=== PATIENT | male | born 2000 | race Caucasian/White ===

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

== ENCOUNTER 2020-12-12 03:35 | Outpatient (CLI) | payer MEDICAID | END 2020-12-12 03:36 | disposition critical access hospital (66) | LOC: EMS 03:35 | PROVIDERS: ATTEND Emergency Medicine | DX: R56.9 Unspecified convulsions (principal); R51.9 Headache, unspecified; R07.0 Pain in throat; R05 Cough | CPT/HCPCS: A0425; A0427; A0999 ==

== ENCOUNTER 2020-12-12 03:51 | Emergency (ER) | payer MEDICAID ==
[2020-12-12] MEDS ORDERED: KETOROLAC 30 MG/ML VIAL IVP STA (04:30)
[2020-12-12] MEDS ORDERED: cefTRIAXone 1 GM in SODIUM CHLORIDE 0.9% MINIBAG 100 ML IV STA (04:30)
[2020-12-12] MEDS ORDERED: DEXAMETHASONE 10 MG/ML VIAL IVP STA (04:30)
[2020-12-12] MEDS ORDERED: LORazepam 2 MG/ML VIAL IVP STA ×2 (04:32→07:33)
--- NOTE | 2020-12-12 04:32 | ED Physician Documentation ---
PD HPI SEIZURE - Stated complaint Stated Complaint: SZ - Chief complaint Chief Complaint: Neuro - History obtained from History obtained from: Patient, Family, EMS - History of Present Illness Timing - onset: How many hours ago (1), Today Witnessed: Witnessed Number of seizures: Single, Lasted minutes Description of seizure activity: Generalized Associated symptoms: Headache, Nausea / vomiting, Other (has had "stuffy nose" for one week) History of seizures: Known seizure disorder Contributing factors: Sleep deprivation, Other (stuffy nose) Treatment [employer]CH[employer]IC: Other (zofran) Similar symptoms before: Diagnosis (epilepsy) Recently seen: Emergency Dept (in Sep 2020) - Additional information Additional information: 20-year-old male with a history of epilepsy has had another seizure tonight. He reports that he has had a number of seizures and he has had a number of different medications he has tried he believes he is tried as many of 17 different medications for his seizures. He is currently on a lamotrigine and amitriptyline. He does have a problem with sleep and trying to regulate his sleep pattern and he has had a stuffy nose recently. He does not think he has been exposed to coronavirus. Review of Systems Constitutional: denies: Fever Eyes: denies: Decreased vision Ears: reports: Ear pain Nose: reports: Rhinorrhea / runny nose, Congestion Throat: denies: Sore throat Cardiac: denies: Chest pain / pressure, Palpitations Respiratory: reports: Cough. denies: Dyspnea GI: reports: Nausea, Vomiting. denies: Abdominal Pain : denies: Dysuria, Frequency Skin: denies: Rash Musculoskeletal: reports: Neck pain. denies: Back pain, Extremity pain Neurologic: denies: Generalized weakness, Focal weakness, Numbness PD PAST MEDICAL HISTORY - Past Medical History Past Medical History: Yes Cardiovascular: None Respiratory: Asthma Neuro: Seizure disorder, Other Endocrine/Autoimmune: None GI: None : None HEENT: None Psych: Depression Musculoskeletal: None Derm: None - Past Surgical History Past Surgical History: No - Present Medications Home Medications: Ambulatory Orders Medication Instructions Recorded Confirmed LORazepam [Lorazepam] 0.5 - 1 mg PO TID PRN #20 tablet 02/22/19 12/12/20 LORazepam [Ativan] 1 mg PO ONCE PRN #10 tablet 03/17/19 12/12/20 Amitriptyline [Elavil] 50 mg PO DAILY 12/12/20 12/12/20 Amox/Clav 875/125 [Augmentin] 1 each PO Q12H #20 tab 12/12/20 LORazepam [Ativan] 1 - 2 mg PO ONCE PRN #12 12/12/20 lamoTRIgine [Lamictal] 200 mg PO BID 12/12/20 12/12/20 - Allergies Allergies/Adverse Reactions: Allergies Allergy/AdvReac Type Severity Reaction Status Date / Time No Known Drug Allergies Allergy Verified 12/12/20 03:57 - Social History Does the pt smoke?: No Smoking Status: Never smoker Does the pt drink ETOH?: No Does the pt have substance abuse?: Yes - Immunizations Immunizations are current?: Yes - POLST Patient has POLST: No PD ED PE NORMAL - Vitals Vital signs reviewed: Yes (tachy and hypertensive) - General General: Alert and oriented X 3, Well developed/nourished, Other (diaphoretic male appears slightly withdrawn) - HEENT HEENT: Atraumatic, PERRL, EOMI, Pharynx benign, Other (Both TM's are inflamed with indistinct landmarks. The right is more inflammed. ) - Neck Neck: Supple, no meningeal sign, No bony TTP, No adenopathy, Thyroid normal - Cardiac Cardiac: No murmur, Other (tachy to 100) - Respiratory Respiratory: No respiratory distress, Clear bilaterally - Abdomen Abdomen: Soft, Non tender, Non distended, No organomegaly - Back Back: No CVA TTP, No spinal TTP - Derm Derm: Normal color, Warm and dry, No rash - Extremities Extremities: No deformity, No edema - Neuro Neuro: Alert and oriented X 3, binding printer 2-12 intact, No motor deficit, No sensory deficit, Normal speech Eye Opening: Spontaneous Motor: Obeys Commands Verbal: Oriented GCS Score: 15 - Psych Psych: Normal mood, Normal affect Results - Vitals Vitals: Vital Signs - 24 hr 12/12/20 12/12/20 12/12/20 03:55 03:57 04:25 Temperature 36.2 C L 36.2 C L 36.2 C L Heart Rate 116 H 108 H 110 H Respiratory 24 18 15 Rate Blood Pressure 142/96 H 142/96 H 107/70 O2 Saturation 99 99 88 L 12/12/20 12/12/2012/12/21 04:26 05:12 06:47 Temperature 36.2 C L 36.3 C L 36.3 C L Heart Rate 110 H 91 87 Respiratory 15 10 L 20 Rate Blood Pressure 107/70 125/80 115/68 O2 Saturation 98 100 98 12/12/20 07:21 Temperature Heart Rate 86 Respiratory 16 Rate Blood Pressure 114/82 H O2 Saturation 100 Oxygen O2 Source Room air - Labs Labs: Laboratory Tests 12/12/20 12/12/20 04:40 04:40 WBC 10.0 RBC 5.63 Hgb 15.8 Hct 47.4 MCV 84.2 MCH 28.1 MCHC 33.3 RDW 13.0 Plt Count 306 MPV 9.0 Neut # (Auto) 8.3 H Lymph # (Auto) 1.1 L [place] # (Auto) 0.5 Eos # (Auto) 0.2 Baso # (Auto) 0.0 Absolute Nucleated RBC 0.00 Nucleated RBC % 0.0 Sodium 140 Potassium 3.8 Chloride 95 L Carbon Dioxide 22 Anion Gap 23.0 H BUN 15 Creatinine 1.1 Estimated GFR (MDRD) 85 L Glucose 130 H Calcium 10.6 H Total Bilirubin 0.4 AST 37 ALT 82 H Alkaline Phosphatase 94 Total Protein 8.4 H Albumin 5.1 Globulin 3.3 Albumin/Globulin Ratio 1.5 Lipase 25 PD MEDICAL DECISION MAKING - ED course Complexity details: reviewed results, re-evaluated patient, considered differential, d/w patient, d/w family ED course: 20-year-old male with a seizure disorder has had another seizure this morning and appears to have otitis on examination. He is administered dexamethasone 10 mg Toradol 30 mg for headache and Rocephin 1 g IV for otitis media. In addition he is given Ativan 2 mg IV to prevent further seizure. The patient feels much improved after several hours in the ED and requests to go home. Departure - Departure Disposition: 01 Home, Self Care Clinical Impression: Recurrent seizures Otitis media Qualifiers: Otitis media type: suppurative Chronicity: acute Laterality: bilateral Recurrence: not specified as recurrent Spontaneous tympanic membrane rupture: without spontaneous rupture Qualified Code(s): H66.003 - Acute suppurative otitis media without spontaneous rupture of ear drum, bilateral Condition: Stable Instructions: ED Otitis Media Acute Adult Follow-Up: ISAI,JIMMY, SUBSTANCE ABUSE PREVENTION COORDINATOR [Physician No Access] - Prescriptions: LORazepam [Ativan] 1 - 2 mg PO ONCE PRN #12 PRN Reason: Seizure Amox/Clav 875/125 [Augmentin] 1 each PO Q12H #20 tab
[2020-12-12] MEDS ORDERED: cefTRIAXone 1 GM VIAL ONE (04:45)
[2020-12-12 04:52] LABS: BASOPHILS % (AUTO) 0.2 %; EOSINOPHILS # (AUTO) 0.2 10^3/uL (0.0-0.7); EOSINOPHILS % (AUTO) 1.7 %; HGB - HEMOGLOBIN 15.8 g/dL (14.0-18.0); LYMPHOCYTES # (AUTO) 1.1 10^3/uL (1.5-3.5); LYMPHOCYTES % (AUTO) 10.5 %; MEAN CORPUSCULAR HEMOGLOBIN 28.1 pg (27.0-31.0); MEAN CORPUSCULAR HGB CONC 33.3 g/dL (32.0-36.0); MEAN CORPUSCULAR VOLUME 84.2 fL (80.0-94.0); MONOCYTES # (AUTO) 0.5 10^3/uL (0.0-1.0); MONOCYTES % (AUTO) 4.5 %; NEUTROPHILS # (AUTO) 8.3 10^3/uL (1.5-6.6); NEUTROPHILS % (AUTO) 82.3 %; PLT - PLATELET COUNT 306 10^3/uL (130-450); RED BLOOD COUNT 5.63 10^6/uL (4.70-6.10)
[2020-12-12 05:06] LABS: ALBUMIN 5.1 g/dL (3.2-5.5); ALBUMIN/GLOBULIN RATIO 1.5 (1.0-2.2); BILIRUBIN,TOTAL 0.4 mg/dL (0.2-1.0); CALCIUM 10.6 mg/dL (8.5-10.3); CREATININE 1.1 mg/dL (0.6-1.2); TOTAL PROTEIN 8.4 g/dL (6.7-8.2)
[2020-12-12] MEDS ORDERED: lamoTRIgine 100 MG TABLET PO STA (05:15)
[2020-12-12 07:41] VITALS: BP 122/79
== END 2020-12-12 07:41 | disposition home or self-care (01) ==
LOC: EDUNIT# → ED 03:51
DX: G40.909 Epilepsy, unspecified, not intractable, without status epilepticus (principal); H66.003 Acute suppurative otitis media without spontaneous rupture of ear drum, bilateral; R51.9 Headache, unspecified; Z72.820 Sleep deprivation
CPT/HCPCS: 36415; 80053; 80175; 83690; 85025; 96365; 96375; 96376; 99283; A9270; J2060

== ENCOUNTER 2020-12-19 15:54 | Outpatient (CLI) | payer MEDICAID | END 2020-12-19 15:55 | disposition home or self-care (01) | LOC: LAB 15:54 | PROVIDERS: ATTEND Psychiatry & Neurology Neurology | DX: G40.909 Epilepsy, unspecified, not intractable, without status epilepticus (principal) | CPT/HCPCS: 36415; 80175 ==

== ENCOUNTER 2021-03-17 21:44 | Emergency (ER) | payer MEDICAID ==
--- OUTSIDE RECORDS SUMMARY | 2021-03-17 21:47 | EXTERNAL MEDICAL SUMMARY RPT | Continuity of Care Document ---
:2000 Demographics Phone Unavailable Preferred Language Korean Marital Status Unknown Confucianist Affiliation Unknown Race Unknown Ethnic Group Unknown Author Organization [place] Address [address] [phone] Phone Care Team Providers Name Role Phone Haley Martinez Unavailable Unavailable Allergies Encounters Medications Problems Procedures date description facility [id number] [facility] Results
[2021-03-17 21:52] VITALS: BP 126/75
--- OUTSIDE RECORDS SUMMARY | 2021-03-17 22:10 | EXTERNAL MEDICAL SUMMARY RPT | Continuity of Care Document ---
:2000 Demographics Phone Unavailable Preferred Language Setswana Marital Status Unknown Pentecostal Affiliation Unknown Race Unknown Ethnic Group Unknown Author Organization [place] Address [address] [phone] Phone Care Team Providers Name Role Phone Haley Martinez Unavailable Unavailable Allergies Encounters Medications Problems Procedures date description facility [id number] [facility] Results
--- NOTE | 2021-03-17 22:14 | ED Physician Documentation ---
PD HPI LOWER EXT INJURY - Stated complaint Stated Complaint: RIGHT ANKLE PX - Chief complaint Chief Complaint: Ext Problem - History obtained from History obtained from: Patient - History of Present Illness PD HPI LOW EXT INJURY LOCATION: Right, Ankle Type of injury: Twist (inversion injury when stepped in divot.) Timing - onset: Today Timing - details: Abrupt onset, Still present Worsened by: Moving, Palpating Associated symptoms: Swelling, Discolored (bruising color lateral malleolus) Similar symptoms before: Diagnosis (had had ankle fracture in the past and torn ligaments.) Review of Systems Constitutional: denies: Fever, Chills Nose: denies: Rhinorrhea / runny nose, Congestion Throat: denies: Sore throat Respiratory: denies: Cough Skin: denies: Abrasion (s), Laceration (s) Neurologic: denies: Focal weakness, Numbness PD PAST MEDICAL HISTORY - Past Medical History Cardiovascular: None Respiratory: Asthma Neuro: Seizure disorder, Other Endocrine/Autoimmune: None GI: None : None HEENT: None Psych: Depression Musculoskeletal: None Derm: None - Past Surgical History Past Surgical History: No - Present Medications Home Medications: Ambulatory Orders Medication Instructions Recorded Confirmed Amitriptyline [Elavil] 20 - 50 mg PO DAILY 12/12/20 12/12/20 lamoTRIgine [Lamictal] 250 mg PO BID 12/12/20 12/12/20 HYDROcod/ACETAM 5/325 [[place] 5/325] 1 ea PO Q6H PRN #10 tablet 03/18/21 Ibuprofen [Motrin] 600 mg PO TID PRN #25 tab 03/18/21 - Allergies Allergies/Adverse Reactions: Allergies Allergy/AdvReac Type Severity Reaction Status Date / Time No Known Drug Allergies Allergy Verified 12/12/20 03:57 - Social History Does the pt smoke?: No Smoking Status: Never smoker Does the pt drink ETOH?: No Does the pt have substance abuse?: Yes - Immunizations Immunizations are current?: Yes - POLST Patient has POLST: No PD ED PE NORMAL - Vitals Vital signs reviewed: Yes - General General: Alert and oriented X 3, Well developed/nourished, Other (seems very uncomfortable due to ankle) - Derm Derm: Normal color, Warm and dry - Extremities Extremities: Other (right ankle with swelling and ecchymosis at lateral malleolus and distal to that, onto area of ATFL. Not tender in distal foot/toes. Stress testing not done due to pain/tenderrness. ) Results - Vitals Vitals: Vital Signs - 24 hr 03/17/21 21:47 Temperature 36.6 C Heart Rate 120 H Respiratory 18 Rate Blood Pressure 126/75 O2 Saturation 95 Oxygen O2 Source Room air - Rads (name of study) right ankle Radiology: Prelim report reviewed (no acute fractures (remote small avulsion).), See rad report PD MEDICAL DECISION MAKING - ED course Complexity details: reviewed results, considered differential, d/w patient Departure - Departure Disposition: Home, Self Care Clinical Impression: High ankle sprain of right lower extremity Qualifiers: Encounter type: initial encounter Qualified Code(s): S93.491A - Sprain of other ligament of right ankle, initial encounter Condition: Stable Record reviewed to determine appropriate education?: Yes Instructions: ED Sprain Ankle Follow-Up: Álvaro Townsend MD [Provider Admit Priv/Credential] - Prescriptions: Ibuprofen [Motrin] 600 mg PO TID PRN #25 tab PRN Reason: Pain HYDROcod/ACETAM 5/325 [[place] 5/325] 1 ea PO Q6H PRN #10 tablet PRN Reason: Pain Comments: Your x-ray does not show any fractures. However the degree of pain bruising and swelling suggest some tearing of the ligaments on the side of the ankle. Is hard to assess the degree of it currently with the swelling and pain. We will treated as torn ligaments and have a recheck in about a week to week and a half to reassess the ligaments at that time. Call tomorrow for follow up appt. Use the walking cast boot and have it on most all the time. You can change it for washing or cleaning but have it on to support the ankle. Anti-inflammatories such as ibuprofen 3 times a day. To that add Tylenol if needed for pain. Ice rest and elevate often the next couple of days to reduce swelling. The bruising will take a week or so to fade. Discharge Date/Time: 03/18/21 00:45
[2021-03-18] MEDS ORDERED: HYDROcod/ACETAM 5/325 MG TABLET PO STA (00:19)
[2021-03-18] MEDS ORDERED: IBUPROFEN 600 MG TABLET PO STA (00:19)
--- NOTE | 2021-03-18 08:34 | XRAY Report ---
PROCEDURE: Ankle 3 View RT INDICATIONS: Trauma TECHNIQUE: 3 views of the ankle were acquired. COMPARISON: None FINDINGS: Bones: No fractures or dislocations. Ankle mortise is normally aligned. No suspicious bony lesions . Soft tissues: No tibiotalar joint effusion. Achilles tendon appears normal. Lateral ankle soft tis naya swelling is noted. IMPRESSION: Lateral ankle soft tissue swelling. No gross acute ankle fracture or dislocation. Reviewed by: Marciano Cintron MD on 03/18/2021 8:32 AM PDT Approved by: Marciano Cintron MD on 03/18/2021 8:32 AM PDT Station ID: [id number]
== END 2021-03-18 00:45 | disposition home or self-care (01) ==
LOC: ED 21:44
DX: S93.491A Sprain of other ligament of right ankle, initial encounter (principal); S90.01XA Contusion of right ankle, initial encounter; X50.1XXA Overexertion from prolonged static or awkward postures, initial encounter; Y93.74 Activity, frisbee; Y92.007 Garden or yard of unspecified non-institutional (private) residence as the place of occurrence of the external cause
CPT/HCPCS: 73610; 99283; A9270

== ENCOUNTER 2021-03-20 19:21 | Emergency (ER) | payer MEDICAID ==
--- OUTSIDE RECORDS SUMMARY | 2021-03-20 19:24 | EXTERNAL MEDICAL SUMMARY RPT | Continuity of Care Document ---
:2000 Demographics Phone Unavailable Preferred Language Maldivian Marital Status Unknown Taoism Affiliation Unknown Race Unknown Ethnic Group Unknown Author Organization [place] Address [address] [phone] Phone Care Team Providers Name Role Phone Michelle Unavailable Unavailable Allergies Encounters Medications Problems Procedures date description facility [id number] [facility] Results
--- OUTSIDE RECORDS SUMMARY | 2021-03-20 19:27 | EXTERNAL MEDICAL SUMMARY RPT | Continuity of Care Document ---
:2000 Demographics Phone Unavailable Preferred Language Ghanaian Marital Status Unknown Protestant Affiliation Unknown Race Unknown Ethnic Group Unknown Author Organization [place] Address [address] [phone] Phone Care Team Providers Name Role Phone Michelle Unavailable Unavailable Allergies Encounters Medications Problems Procedures date description facility [id number] [facility] Results
--- NOTE | 2021-03-20 19:29 | ED Physician Documentation ---
PD HPI LOWER EXT INJURY - Stated complaint Stated Complaint: RT ANKLE PX - History obtained from History obtained from: Patient - History of Present Illness PD HPI LOW EXT INJURY LOCATION: Right, Ankle, Foot Type of injury: Twist (stepped in divot few days ago and seen in ER with ankle ligament/muscle tear clinically, and negative xray. Was to follow up with Ortho or PCP after swelling goes down to reassess degree of ligament injury. He went to Walk In today and was referred to ER, per patient.) Timing - onset: How many days ago Timing - details: Abrupt onset, Still present (less swelling that with day of injury, but bruising has spread.) Improved by: Rest, Immobilization Worsened by: Palpating Associated symptoms: Swelling, Discolored. No: Weakness, Numbness Recently seen: Emergency Dept (is presenting today for follow up and recheck with spread of brusing down to foot/base of toes and up lateral side of lower leg. No calf pain nor swelling.) Review of Systems Constitutional: denies: Fever, Chills Cardiac: denies: Chest pain / pressure, Palpitations, Calf pain Respiratory: denies: Dyspnea, Cough Neurologic: denies: Focal weakness, Numbness PD PAST MEDICAL HISTORY - Past Medical History Cardiovascular: None Respiratory: Asthma Neuro: Seizure disorder, Other Endocrine/Autoimmune: None GI: None : None HEENT: None Psych: Depression Musculoskeletal: None Derm: None - Past Surgical History Past Surgical History: No - Present Medications Home Medications: Ambulatory Orders Medication Instructions Recorded Confirmed Amitriptyline [Elavil] 20 - 50 mg PO DAILY 12/12/20 12/12/20 lamoTRIgine [Lamictal] 250 mg PO BID 12/12/20 12/12/20 HYDROcod/ACETAM 5/325 [[place] 5/325] 1 ea PO Q6H PRN #10 tablet 03/18/21 Ibuprofen [Motrin] 600 mg PO TID PRN #25 tab 03/18/21 - Allergies Allergies/Adverse Reactions: Allergies Allergy/AdvReac Type Severity Reaction Status Date / Time No Known Drug Allergies Allergy Verified 03/20/21 19:32 - Social History Does the pt smoke?: No Smoking Status: Never smoker Does the pt drink ETOH?: No Does the pt have substance abuse?: Yes - Immunizations Immunizations are current?: Yes - POLST Patient has POLST: No PD ED PE NORMAL - Vitals Vital signs reviewed: Yes - General General: Alert and oriented X 3, No acute distress, Well developed/nourished - Derm Derm: Normal color, Warm and dry - Extremities Extremities: Other (there is less focal swelling and bruising over anterolateral ankle, with it showing at base of heel, dorsum foot and base of toes now. Also some bruising lateral lower leg in area peroneal muscle. No calf tenderness nor edema in popliteal/upper calf area. ) - Neuro Neuro: Alert and oriented X 3, No motor deficit, No sensory deficit, Normal speech Results - Vitals Vitals: Vital Signs - 24 hr 03/20/21 19:26 Heart Rate 86 Respiratory 14 Rate Blood Pressure 146/72 H O2 Saturation 99 Oxygen O2 Source Room air PD MEDICAL DECISION MAKING - ED course Complexity details: reviewed old records, considered differential (patient with reasonably expected bruising to foot, down to toes and some up lateral lower leg in area of spread of the ankle hematoma, from gravity and compression. No calf tenderness nor swelling in upper lower leg. Stress testing shows laxity ATFL but not posterior. ), d/w patient ED course: Patient with bruising and swelling related to ankle injury/hematoma. I am not sure why Walk In provider felt patient needed to come back to the ER and not able to evaluate it there. Seems sturdy enough to be able to continue with boot orthosis until Ortho followup. Departure - Departure Disposition: 01 Home, Self Care Clinical Impression: High ankle sprain of right lower extremity Qualifiers: Encounter type: subsequent encounter Qualified Code(s): S93.491D - Sprain of other ligament of right ankle, subsequent encounter Condition: Stable Record reviewed to determine appropriate education?: Yes Instructions: ED Sprain Ankle W X Ray Follow-Up: Álvaro Townsend MD [Provider Admit Priv/Credential] - Comments: The spread of the bruising is reasonable based on the initial hematoma (blood collection) of the ankle you initially had. Movement, gravity, compression with the Nelson wrap and boot will all cause it to spread around as it has. The bruising is irritative to the tissue and is promoting swelling in other areas and pain in other areas. Continue the ibuprofen 3 times a day. To that add Tylenol 650 mg 4 times a day. Continue to elevate ice and rest the ankle with the cast boot on most of the time for support of the ligaments and muscles. Continue nonweightbearing with the crutches until starting to improve. Follow-up with orthopedics next week, call for an appointment. The recheck of the ligaments today shows some stability of the lateral ankle ligaments. Likely there is some partial tears of course with the bruising and swelling. This should be treatable with the continued use of the cast boot over 4-6 weeks. Follow-up with orthopedics next week for reevaluation and to ensure ongoing healing with this approach. Discharge Date/Time: 03/20/21 20:03
[2021-03-20 19:32] VITALS: BP 146/72
== END 2021-03-20 20:03 | disposition home or self-care (01) ==
LOC: ED 19:21
DX: S93.491A Sprain of other ligament of right ankle, initial encounter (principal); S90.01XA Contusion of right ankle, initial encounter; S90.31XA Contusion of right foot, initial encounter; S80.11XA Contusion of right lower leg, initial encounter; X50.1XXA Overexertion from prolonged static or awkward postures, initial encounter
CPT/HCPCS: 99281; 99282

== ENCOUNTER 2021-03-27 08:00 | Outpatient (CLI) | payer MEDICAID ==
--- NOTE | 2021-03-28 09:19 | XRAY Report ---
PROCEDURE: Ankle 3 View RT INDICATIONS: R ANKLE PX TECHNIQUE: 3 views of the ankle were acquired. COMPARISON: 03/17/2021 FINDINGS: Bones: No fractures or dislocations. Ankle mortise is normally aligned. No suspicious bony lesions . Soft tissues: No tibiotalar joint effusion. Achilles tendon appears normal. Mild lateral ankle sof t tissue swelling is seen. IMPRESSION: Mild lateral ankle soft tissue swelling decreased compared to previous study. No ankle f racture or dislocation. Ankle mortise is intact. Reviewed by: Marciano Cintron MD on 03/28/2021 9:18 AM PDT Approved by: Marciano Cintron MD on 03/28/2021 9:18 AM PDT Station ID: [id number]
== END 2021-03-27 23:59 | disposition home or self-care (01) ==
LOC: DI.N 08:00
PROVIDERS: ATTEND Physician Assistant
DX: R93.6 Abnormal findings on diagnostic imaging of limbs (principal); R93.89 Abnormal findings on diagnostic imaging of other specified body structures

== ENCOUNTER 2021-04-01 18:23 | Outpatient (CLI) | payer MEDICAID | END 2021-04-01 18:24 | disposition critical access hospital (66) | LOC: EMS 18:23 | DX: R56.9 Unspecified convulsions (principal) | CPT/HCPCS: A0425; A0427; A0999 ==

== ENCOUNTER 2021-04-01 18:43 | Emergency (ER) | payer MEDICAID ==
[2021-04-01] MEDS ORDERED: SODIUM CHLORIDE 0.9% 1,000 ML IV STA (19:13)
[2021-04-01] MEDS ORDERED: LORazepam 2 MG/ML VIAL IVP STA (19:13)
[2021-04-01] MEDS ORDERED: ONDANSETRON 4 MG/2 ML VIAL IVP STA (19:13)
--- NOTE | 2021-04-01 19:16 | ED Physician Documentation ---
PD HPI SEIZURE - Stated complaint Stated Complaint: SEIZURE - Chief complaint Chief Complaint: Neuro - History obtained from History obtained from: Patient, Family, EMS - History of Present Illness Timing - onset: Today Witnessed: Unwitnessed Number of seizures: Unobtainable Description of seizure activity: Generalized, Postictal. No: Incontinent Injury during seizure: None Associated symptoms: Diaphoresis, Nausea / vomiting History of seizures: Known seizure disorder Contributing factors: No: Off meds, Out of meds, Changed meds, Low blood sugar, Head injury, Substance abuse, EtOH withdrawal, Benzo withdrawal, Overdose, Fever, Sleep deprivation Similar symptoms before: Diagnosis (siezure disorder) Recently seen: Emergency Dept (for ankle sprain) - Additional information Additional information: 20-year-old male with a lifelong seizure disorder has had seizures 1-2 times per week until about 2 months ago when he has had a break for about 2 months. He has been stable now on lamotrigine at 250 twice daily and amitriptyline. Today he got up at about 4 PM and his mother was gone he texted her something that did not sound right she rushed back home to find him laying on his back and beginning to vomit. She rolled him onto his left side he has vomited and has been diaphoretic similar to what is had previously with seizure. Review of Systems Constitutional: denies: Fever, Chills, Myalgias Eyes: denies: Decreased vision Ears: denies: Ear pain Nose: denies: Rhinorrhea / runny nose, Congestion Throat: denies: Sore throat Cardiac: denies: Chest pain / pressure Respiratory: denies: Dyspnea, Cough GI: reports: Abdominal Pain (now), Nausea, Vomiting, Diarrhea (with excessive BBQ and mac and cheese) : denies: Dysuria, Frequency Skin: denies: Rash Musculoskeletal: denies: Neck pain, Back pain, Extremity pain Neurologic: reports: Seizure. denies: Generalized weakness, Focal weakness, Numbness Psychiatric: denies: Depressed, Suicidal PD PAST MEDICAL HISTORY - Past Medical History Past Medical History: Yes Cardiovascular: None Respiratory: Asthma Neuro: Seizure disorder, Other Endocrine/Autoimmune: None GI: None : None HEENT: None Psych: Depression Musculoskeletal: None Derm: None - Past Surgical History Past Surgical History: No - Present Medications Home Medications: Ambulatory Orders Medication Instructions Recorded Confirmed lamoTRIgine [Lamictal] 250 mg PO BID 12/12/20 04/01/21 Amitriptyline [Elavil] 25 mg PO HS 04/01/21 04/02/21 LORazepam [Ativan] 1 mg PO Q6HR PRN #12 tablet 04/01/21 04/01/21 - Allergies Allergies/Adverse Reactions: Allergies Allergy/AdvReac Type Severity Reaction Status Date / Time No Known Drug Allergies Allergy Verified 04/01/21 23:38 - Social History Does the pt smoke?: No Smoking Status: Never smoker Does the pt drink ETOH?: No Does the pt have substance abuse?: Yes - Immunizations Immunizations are current?: Yes - POLST Patient has POLST: No PD ED PE NORMAL - Vitals Vital signs reviewed: Yes (tachy and hypertensive) - General General: Alert and oriented X 3, Well developed/nourished, Other (The patient is anxious appearing diaphoretic and holding an emesis bag) - HEENT HEENT: Atraumatic, PERRL, EOMI, Ears normal, Moist mucous membranes, Pharynx benign, Dentition benign - Neck Neck: Supple, no meningeal sign, No bony TTP - Cardiac Cardiac: RRR, No murmur - Respiratory Respiratory: No respiratory distress, Clear bilaterally - Abdomen Abdomen: Normal bowel sounds, Soft, Non distended, No organomegaly, Other (mild epigastric tenderness ) - Back Back: No CVA TTP, No spinal TTP - Derm Derm: Normal color, No rash, Other (diaphoretic ) - Extremities Extremities: No deformity, No edema - Neuro Neuro: Alert and oriented X 3, provider relations coordinator 2-12 intact, No motor deficit, No sensory deficit, Normal speech Eye Opening: Spontaneous Motor: Obeys Commands Verbal: Oriented GCS Score: 15 - Psych Psych: Normal mood, Normal affect Results - Vitals Vitals: Vital Signs - 24 hr 04/01/21 04/01/21 04/01/21 18:52 19:02 21:15 Temperature 36.6 C 36.6 C Heart Rate 105 H 105 H 100 Respiratory 19 18 18 Rate Blood Pressure 164/118 H 164/118 H 137/77 H O2 Saturation 100 100 100 04/01/21 22:31 Temperature 37.1 C Heart Rate 108 H Respiratory 18 Rate Blood Pressure 142/94 H O2 Saturation 100 Oxygen O2 Source Room air - Labs Labs: Laboratory Tests 04/01/21 04/01/21 04/01/21 19:30 19:30 19:30 WBC 10.0 RBC 5.82 Hgb 16.5 Hct 49.5 MCV 85.1 MCH 28.4 MCHC 33.3 RDW 13.4 Plt Count 302 MPV 9.7 Neut # (Auto) 8.0 H Lymph # (Auto) 1.3 L [place] # (Auto) 0.4 Eos # (Auto) 0.2 Baso # (Auto) 0.0 Absolute Nucleated RBC 0.00 Nucleated RBC % 0.0 Sodium 140 Potassium 4.0 Chloride 104 Carbon Dioxide 19 L Anion Gap 17.0 H BUN 16 Creatinine 1.1 Estimated GFR (MDRD) 85 L Glucose 142 H Lactic Acid 5.5 H* Calcium 10.5 H Total Bilirubin 0.5 AST 30 ALT 71 H Alkaline Phosphatase 90 Total Protein 8.4 H Albumin 5.2 Globulin 3.2 Albumin/Globulin Ratio 1.6 Lipase 21 L Urine Color Urine Clarity Urine pH Ur Specific [place] Urine Protein Urine Glucose (UA) Urine Ketones Urine Occult Blood Urine Nitrite Urine Bilirubin Urine Urobilinogen Ur Leukocyte Esterase Urine RBC Urine WBC Ur Squamous Epith Cells Urine Bacteria Ur Microscopic Review Urine Culture Comments Urine Opiates Screen Ur Oxycodone Screen Urine Methadone Screen Ur Propoxyphene Screen Ur Barbiturates Screen Ur Tricyclics Screen Ur Phencyclidine Scrn Ur Amphetamine Screen U Methamphetamines Scrn U Benzodiazepines Scrn Urine Cocaine Screen U Cannabinoids Screen 04/01/21 04/01/21 21:00 21:30 WBC RBC Hgb Hct MCV MCH MCHC RDW Plt Count MPV Neut # (Auto) Lymph # (Auto) [place] # (Auto) Eos # (Auto) Baso # (Auto) Absolute Nucleated RBC Nucleated RBC % Sodium Potassium Chloride Carbon Dioxide Anion Gap BUN Creatinine Estimated GFR (MDRD) Glucose Lactic Acid 1.6 Calcium Total Bilirubin AST ALT Alkaline Phosphatase Total Protein Albumin Globulin Albumin/Globulin Ratio Lipase Urine Color YELLOW Urine Clarity CLEAR Urine pH 5.5 Ur Specific [place] >=1.030 H Urine Protein 30 H Urine Glucose (UA) NEGATIVE Urine Ketones TRACE Urine Occult Blood TRACE-LYSE Urine Nitrite NEGATIVE Urine Bilirubin NEGATIVE Urine Urobilinogen 0.2 (NORMAL) Ur Leukocyte Esterase NEGATIVE Urine RBC 0-5 Urine WBC 0-3 Ur Squamous Epith Cells NONE SEEN Urine Bacteria Rare Ur Microscopic Review INDICATED Urine Culture Comments NOT INDICATED Urine Opiates Screen NEGATIVE Ur Oxycodone Screen NEGATIVE Urine Methadone Screen NEGATIVE Ur Propoxyphene Screen NEGATIVE Ur Barbiturates Screen NEGATIVE Ur Tricyclics Screen POSITIVE H Ur Phencyclidine Scrn NEGATIVE Ur Amphetamine Screen NEGATIVE U Methamphetamines Scrn NEGATIVE U Benzodiazepines Scrn POSITIVE H Urine Cocaine Screen NEGATIVE U Cannabinoids Screen POSITIVE H PD MEDICAL DECISION MAKING - ED course Complexity details: reviewed old records, reviewed results, re-evaluated patient , considered differential, d/w patient, d/w family ED course: 20-year-old male with a known seizure disorder has had a seizure at home grandma he is floridly postictal with diaphoresis nausea vomiting and headache. He is administered Ativan intravenously as well as saline and he has some improvement. He is kept in the emergency department for about 4 hours and he is discharged with a single tablet of Ativan for use if necessary at home. Departure - Departure Disposition: 01 Home, Self Care Clinical Impression: Recurrent seizures Condition: Stable Instructions: ED Seizure Recurrent Follow-Up: Your, doctor [Other] Prescriptions: LORazepam [Ativan] 1 mg PO Q6HR PRN #12 tablet PRN Reason: Seizure Discharge Date/Time: 04/01/21 22:35
[2021-04-01 19:33] LABS: BASOPHILS % (AUTO) 0.2 %; EOSINOPHILS # (AUTO) 0.2 10^3/uL (0.0-0.7); EOSINOPHILS % (AUTO) 1.8 %; HCT - HEMATOCRIT 49.5 % (42.0-52.0); HGB - HEMOGLOBIN 16.5 g/dL (14.0-18.0); LYMPHOCYTES # (AUTO) 1.3 10^3/uL (1.5-3.5); LYMPHOCYTES % (AUTO) 12.6 %; MEAN CORPUSCULAR HEMOGLOBIN 28.4 pg (27.0-31.0); MEAN CORPUSCULAR HGB CONC 33.3 g/dL (32.0-36.0); MEAN CORPUSCULAR VOLUME 85.1 fL (80.0-94.0); MEAN PLATELET VOLUME 9.7 fL (7.4-11.4); MONOCYTES # (AUTO) 0.4 10^3/uL (0.0-1.0); NEUTROPHILS % (AUTO) 80.7 %; PLT - PLATELET COUNT 302 10^3/uL (130-450); RED BLOOD COUNT 5.82 10^6/uL (4.70-6.10); RED CELL DISTRIBUTION WIDTH 13.4 % (12.0-15.0)
[2021-04-01 19:46] LABS: ALBUMIN 5.2 g/dL (3.2-5.5); ALBUMIN/GLOBULIN RATIO 1.6 (1.0-2.2); BILIRUBIN,TOTAL 0.5 mg/dL (0.2-1.0); CALCIUM 10.5 mg/dL (8.5-10.3); CREATININE 1.1 mg/dL (0.6-1.2); TOTAL PROTEIN 8.4 g/dL (6.7-8.2)
[2021-04-01] MEDS ORDERED: ACETAMINOPHEN 325 MG TABLET PO STA (21:15)
[2021-04-01 21:16] LABS: MUDS CUTOFF CONCENTRATIONS CUTOFF CONC BELOW:
[2021-04-01 21:21] LABS: BILIRUBIN,URINE NEGATIVE (NEGATIVE); GLUCOSE, URINE (UA) NEGATIVE (NEGATIVE); KETONES,URINE (UA) TRACE mg/dL (NEGATIVE); LEUKOCYTE ESTERASE, URINE NEGATIVE (NEGATIVE); NITRITE,URINE NEGATIVE (NEGATIVE); OCCULT BLOOD,URINE TRACE-LYSE (NEGATIVE); PH,URINE 5.5 PH (5.0-7.5); PROTEIN,URINE 30 mg/dL (NEGATIVE); UROBILINOGEN,URINE 0.2 (NORMAL) E.U./dL (NORMAL)
[2021-04-01 21:24] LABS: CLARITY,URINE CLEAR (CLEAR)
[2021-04-01 21:33] LABS: WBC,URINE 0-3 /HPF (0-3)
[2021-04-01 21:34] LABS: AMPHETAMINE SCREEN,URINE NEGATIVE (NEGATIVE); BACTERIA,URINE Rare /HPF (None Seen); BARBITURATE SCREEN,UR NEGATIVE (NEGATIVE); BENZODIAZEPINES SCREEN, URINE POSITIVE (NEGATIVE); COCAINE SCREEN URINE NEGATIVE (NEGATIVE); METHADONE SCREEN, URINE NEGATIVE (NEGATIVE); METHAMPHETAMINES SCREEN, URINE NEGATIVE (NEGATIVE); OPIATE SCREEN, URINE NEGATIVE (NEGATIVE); OXYCODONE SCREEN, URINE NEGATIVE (NEGATIVE); PROPOXYPHENE SCREEN, URINE NEGATIVE (NEGATIVE); RBC,URINE 0-5 /HPF (0-5); SQUAMOUS EPITHELIAL CELL,UR NONE SEEN (<= Few); THC CANNABINOID SCREEN, URINE POSITIVE (NEGATIVE); TRICYCLIC ANTIDEPRESSANT,URINE POSITIVE (NEGATIVE)
[2021-04-01] MEDS ORDERED: LORazepam 1 MG TABLET PO STA (22:07)
[2021-04-01 22:32] VITALS: BP 142/94
== END 2021-04-01 22:35 | disposition home or self-care (01) ==
LOC: EDUNIT# → ED 18:43
DX: G40.909 Epilepsy, unspecified, not intractable, without status epilepticus (principal); R11.2 Nausea with vomiting, unspecified; R10.13 Epigastric pain; R51.9 Headache, unspecified
CPT/HCPCS: 36415; 80053; 80175; 80306; 81001; 81003; 83605; 83690; 85025; 87086; 96361; 96374; 96375; 99284

== ENCOUNTER 2021-04-01 23:19 | Outpatient (CLI) | payer MEDICAID | END 2021-04-01 23:20 | disposition critical access hospital (66) | LOC: EMS 23:19 | DX: R56.9 Unspecified convulsions (principal) | CPT/HCPCS: A0425; A0429; A0999 ==

== ENCOUNTER 2021-04-01 23:31 | Emergency (ER) | payer MEDICAID ==
[2021-04-01] MEDS ORDERED: SODIUM CHLORIDE 0.9% 1,000 ML IV STA (23:34)
[2021-04-01] MEDS ORDERED: ONDANSETRON 4 MG/2 ML VIAL IVP STA (23:34)
[2021-04-01] MEDS ORDERED: LORazepam 2 MG/ML VIAL IVP STA (23:34)
[2021-04-01 23:56] LABS: BASOPHILS % (AUTO) 0.1 %; EOSINOPHILS % (AUTO) 0.1 %; HCT - HEMATOCRIT 46.2 % (42.0-52.0); HGB - HEMOGLOBIN 15.2 g/dL (14.0-18.0); LYMPHOCYTES # (AUTO) 0.9 10^3/uL (1.5-3.5); LYMPHOCYTES % (AUTO) 5.9 %; MEAN CORPUSCULAR HEMOGLOBIN 28.1 pg (27.0-31.0); MEAN CORPUSCULAR HGB CONC 32.9 g/dL (32.0-36.0); MEAN CORPUSCULAR VOLUME 85.6 fL (80.0-94.0); MEAN PLATELET VOLUME 9.3 fL (7.4-11.4); MONOCYTES # (AUTO) 0.5 10^3/uL (0.0-1.0); MONOCYTES % (AUTO) 3.3 %; NEUTROPHILS # (AUTO) 13.6 10^3/uL (1.5-6.6); NEUTROPHILS % (AUTO) 90.1 %; PLT - PLATELET COUNT 282 10^3/uL (130-450); RED CELL DISTRIBUTION WIDTH 13.3 % (12.0-15.0); WHITE BLOOD COUNT 15.1 x10^3/uL (4.8-10.8)
[2021-04-02 00:07] LABS: ALBUMIN 4.8 g/dL (3.2-5.5); ALBUMIN/GLOBULIN RATIO 1.8 (1.0-2.2); BILIRUBIN,TOTAL 0.7 mg/dL (0.2-1.0); CALCIUM 9.3 mg/dL (8.5-10.3); CREATININE 1.1 mg/dL (0.6-1.2); POTASSIUM 4.7 mmol/L (3.5-5.0); TOTAL PROTEIN 7.5 g/dL (6.7-8.2)
--- NOTE | 2021-04-02 02:40 | ED Physician Documentation ---
PD HPI SEIZURE - Stated complaint Stated Complaint: SEIZURE - Chief complaint Chief Complaint: Neuro - History obtained from History obtained from: Patient, Family, EMS - History of Present Illness Timing - onset: Today Witnessed: Witnessed Number of seizures: Single Description of seizure activity: Generalized, Tonic clonic Injury during seizure: None Associated symptoms: Headache, Diaphoresis, Nausea / vomiting History of seizures: Known seizure disorder Contributing factors: No: Off meds, Out of meds, Changed meds, Low blood sugar, Head injury, Substance abuse, EtOH withdrawal, Benzo withdrawal, Overdose, Fever, Sleep deprivation Similar symptoms before: Diagnosis (seizure disorder.) Recently seen: Emergency Dept - Additional information Additional information: 20-year-old male with a known seizure disorder has had [place] seizures as a child 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 He has had an issue with seizure maybe once or twice per week. He was seen here he was diaphoretic vomiting and had a headache postictal and he was administered Ativan and fluids and he improved. He was discharged with a 1 mg Ativan pill and he left the hospital with his mother he barely got to the highway when he began having or that he was having a seizure and had a tonic-clonic seizure in the car. Is brought to the hospital by ambulance.No medications were administered in route.I did get a telephone call from the patient's brother who is in the [facility] and he indicates that this is happened to this patient a number of times previously where he has been discharged from the hospital after having a grand mal seizure and has a second seizure. Review of Systems Constitutional: reports: Sweats Eyes: denies: Decreased vision Ears: denies: Ear pain Nose: denies: Rhinorrhea / runny nose, Congestion Throat: denies: Sore throat Cardiac: denies: Chest pain / pressure, Palpitations Respiratory: denies: Dyspnea, Cough GI: reports: Nausea, Vomiting. denies: Abdominal Pain, Constipation, Diarrhea : denies: Dysuria, Frequency Skin: denies: Rash Musculoskeletal: denies: Neck pain, Back pain, Extremity pain Neurologic: reports: Seizure, Headache. denies: Generalized weakness, Focal weakness, Numbness, Head injury, LOC PD PAST MEDICAL HISTORY - Past Medical History Past Medical History: Yes Cardiovascular: None Respiratory: Asthma Neuro: Seizure disorder, Other Endocrine/Autoimmune: None GI: None : None HEENT: None Psych: Depression Musculoskeletal: None Derm: None - Past Surgical History Past Surgical History: No - Present Medications Home Medications: Ambulatory Orders Medication Instructions Recorded Confirmed lamoTRIgine [Lamictal] 250 mg PO BID 12/12/20 04/01/21 Amitriptyline [Elavil] 25 mg PO HS 04/01/21 04/02/21 LORazepam [Ativan] 1 mg PO Q6HR PRN #12 tablet 04/01/21 04/01/21 - Allergies Allergies/Adverse Reactions: Allergies Allergy/AdvReac Type Severity Reaction Status Date / Time No Known Drug Allergies Allergy Verified 04/01/21 23:38 - Social History Does the pt smoke?: No Smoking Status: Never smoker Does the pt drink ETOH?: No Does the pt have substance abuse?: Yes - Immunizations Immunizations are current?: Yes - POLST Patient has POLST: No PD ED PE NORMAL - Vitals Vital signs reviewed: Yes - General General: Alert and oriented X 3, Well developed/nourished, Other (Diaphoretic male with nausea is somewhat withdrawn.) - HEENT HEENT: Atraumatic, PERRL, EOMI - Neck Neck: Supple, no meningeal sign, No bony TTP - Cardiac Cardiac: RRR, No murmur - Respiratory Respiratory: No respiratory distress, Clear bilaterally - Abdomen Abdomen: Normal bowel sounds, Soft, Non tender, Non distended - Back Back: No CVA TTP, No spinal TTP - Derm Derm: Normal color, No rash, Other (Diaphoretic) - Extremities Extremities: No deformity, No edema - Neuro Neuro: Alert and oriented X 3, assistant department manager 2-12 intact, No motor deficit, No sensory deficit, Normal speech Eye Opening: Spontaneous Motor: Obeys Commands Verbal: Oriented GCS Score: 15 - Psych Psych: Normal mood, Normal affect Results - Vitals Vitals: Vital Signs - 24 hr 04/01/21 04/01/21 04/02/21 23:38 23:44 00:13 Temperature 36.7 C 36.7 C 36.7 C Heart Rate 120 H 120 H 99 Respiratory 18 18 16 Rate Blood Pressure 140/90 H 140/90 H 142/70 H O2 Saturation 100 100 100 04/02/21 02:42 Temperature 36.7 C Heart Rate 114 H Respiratory 16 Rate Blood Pressure 132/70 H O2 Saturation 98 Oxygen O2 Source Room air - Labs Labs: Laboratory Tests 04/01/21 04/01/21 23:50 23:50 WBC 15.1 H RBC 5.40 Hgb 15.2 Hct 46.2 MCV 85.6 MCH 28.1 MCHC 32.9 RDW 13.3 Plt Count 282 MPV 9.3 Neut # (Auto) 13.6 H Lymph # (Auto) 0.9 L [place] # (Auto) 0.5 Eos # (Auto) 0.0 Baso # (Auto) 0.0 Absolute Nucleated RBC 0.00 Nucleated RBC % 0.0 Sodium 138 Potassium 4.7 Chloride 103 Carbon Dioxide 20 L Anion Gap 15.0 H BUN 15 Creatinine 1.1 Estimated GFR (MDRD) 85 L Glucose 147 H Calcium 9.3 Total Bilirubin 0.7 AST 28 ALT 64 H Alkaline Phosphatase 83 Total Protein 7.5 Albumin 4.8 Globulin 2.7 Albumin/Globulin Ratio 1.8 Lipase 20 L PD MEDICAL DECISION MAKING - ED course Complexity details: reviewed old records, reviewed results, re-evaluated patient, considered differential, d/w patient, d/w family ED course: 20 year-old male with known seizure disorder has a second seizure immediately after being discharged from the emergency department. Patient had been held in the emergency department for nearly 4 hours during which time he was given fluids antiemetic and Ativan. He felt much improved at the time of discharge and I was not expecting him to have a second seizure. He returned by ambulance immediately after having a seizure in the car. I did receive a call from the patient's brother who was angry that the patient had been discharged. I was able to explain to the brother that he did not appear unwell at the time of discharge and reassured him we would continue to treat Tayhlor appropriately. I had planned to keep the patient in the ED overnight on observation and the patient became restless and demanded to go home. He had taken his dose of lamotrigene prior to his first visit and vomited that dose and he was given his dose in the ED 250mg and an additional 2mg of IV ativan and released with his mother a second time. He and his mother felt that he would do better at home and felt he had appropriate doses of medication to suppress seizure. Departure - Departure Disposition: 01 Home, Self Care Clinical Impression: Recurrent seizures Condition: Stable Instructions: ED Seizure Recurrent Follow-Up: Your, neurologist [Other] Comments: Follow-up with your neurologist today by telephone regarding adjusting the timing of your dose of lamotrigine to make it most convenient for your lifestyle.
[2021-04-02] MEDS ORDERED: LORazepam 2 MG/ML VIAL IVP STA ×2 (02:44→03:31)
[2021-04-02] MEDS ORDERED: lamoTRIgine 100 MG TABLET PO STA (03:30)
[2021-04-02 03:51] VITALS: BP 133/70
== END 2021-04-02 03:49 | disposition home or self-care (01) ==
LOC: EDUNIT# → ED 23:31
DX: G40.909 Epilepsy, unspecified, not intractable, without status epilepticus (principal); R11.2 Nausea with vomiting, unspecified; R10.13 Epigastric pain; R51.9 Headache, unspecified
CPT/HCPCS: 36415; 80053; 80175; 80306; 81001; 83605; 83690; 85025; 96361; 96374; 96375; 96376; 99283; 99284; A9270; J2060; J8499; 81003; 87086

== ENCOUNTER 2021-04-14 16:12 | Outpatient (CLI) | payer MEDICAID | END 2021-04-14 16:13 | disposition home or self-care (01) | LOC: LAB 16:12 | PROVIDERS: ATTEND Psychiatry & Neurology Neurology | DX: G40.909 Epilepsy, unspecified, not intractable, without status epilepticus (principal) | CPT/HCPCS: 80175 ==

== ENCOUNTER 2021-05-09 00:37 | Outpatient (CLI) | payer MEDICAID | END 2021-05-09 00:38 | disposition critical access hospital (66) | LOC: EMS 00:37 | DX: R56.9 Unspecified convulsions (principal) | CPT/HCPCS: A0425; A0427; A0999 ==

== ENCOUNTER 2021-05-09 04:30 | Outpatient (CLI) | payer MEDICAID | END 2021-05-09 04:31 | disposition critical access hospital (66) | LOC: EMS 04:30 | DX: R56.9 Unspecified convulsions (principal) | CPT/HCPCS: A0425; A0427; A0999 ==

== ENCOUNTER 2021-05-09 04:40 | Emergency (ER) | payer MEDICAID ==
[2021-05-09] MEDS ORDERED: SODIUM CHLORIDE 0.9% 1,000 ML IV STA (05:09)
[2021-05-09] MEDS ORDERED: lamoTRIgine 100 MG TABLET PO STA (05:12)
[2021-05-09 05:57] LABS: BASOPHILS % (AUTO) 0.1 %; EOSINOPHILS # (AUTO) 0.1 10^3/uL (0.0-0.7); EOSINOPHILS % (AUTO) 0.4 %; HCT - HEMATOCRIT 45.1 % (42.0-52.0); HGB - HEMOGLOBIN 14.9 g/dL (14.0-18.0); LYMPHOCYTES # (AUTO) 0.9 10^3/uL (1.5-3.5); LYMPHOCYTES % (AUTO) 6.7 %; MEAN CORPUSCULAR HEMOGLOBIN 28.2 pg (27.0-31.0); MEAN CORPUSCULAR VOLUME 85.4 fL (80.0-94.0); MEAN PLATELET VOLUME 9.4 fL (7.4-11.4); MONOCYTES # (AUTO) 0.7 10^3/uL (0.0-1.0); MONOCYTES % (AUTO) 4.9 %; NEUTROPHILS # (AUTO) 11.8 10^3/uL (1.5-6.6); NEUTROPHILS % (AUTO) 87.4 %; PLT - PLATELET COUNT 267 10^3/uL (130-450); RED BLOOD COUNT 5.28 10^6/uL (4.70-6.10); RED CELL DISTRIBUTION WIDTH 13.2 % (12.0-15.0); WHITE BLOOD COUNT 13.6 x10^3/uL (4.8-10.8)
[2021-05-09 06:10] LABS: ALBUMIN 4.6 g/dL (3.2-5.5); ALBUMIN/GLOBULIN RATIO 1.5 (1.0-2.2); ALKALINE PHOSPHATASE 88 IU/L (42-121); ALT ALANINE AMINOTRANSFERASE 62 IU/L (10-60); AST ASPARTATE AMINOTRANSFERASE 33 IU/L (10-42); BILIRUBIN,TOTAL 0.7 mg/dL (0.2-1.0); BUN - BLOOD UREA NITROGEN 16 mg/dL (6-20); CALCIUM 9.6 mg/dL (8.5-10.3); CARBON DIOXIDE - CO2 25 mmol/L (21-32); CHLORIDE 103 mmol/L (101-111); CK- CREATINE KINASE 732 IU/L (22-269); CREATININE 1.3 mg/dL (0.6-1.2); ETOH - ETHANOL < 5.0 mg/dL; GFR - MDRD 70 (>89); GLUCOSE 110 mg/dL (70-100); LIPASE 22 U/L (22-51); POTASSIUM 4.4 mmol/L (3.5-5.0); SODIUM 139 mmol/L (135-145); TOTAL PROTEIN 7.6 g/dL (6.7-8.2)
[2021-05-09 06:43] VITALS: BP 166/110
[2021-05-09 07:00] LABS: B. PARAPERTUSSIS- RESP PCR PAN NOT DETECTED; B. PERTUSSIS- RESP PCR PANEL NOT DETECTED; C. PNEUMONIAE- RESP PCR PANEL NOT DETECTED; CORONAVIRUS 229E-RESP PCR NOT DETECTED; CORONAVIRUS HKU1-RESP PCR NOT DETECTED; CORONAVIRUS NL63-RESP PCR NOT DETECTED; CORONAVIRUS OC43-RESP PCR NOT DETECTED; HUMAN METAPNEUMOVIRUS NOT DETECTED; INFLUENZA A- RESP PCR PANEL NOT DETECTED; INFLUENZA B - RESP PCR PANEL NOT DETECTED; M. PNEUMONIAE- RESP PCR PANEL NOT DETECTED; PARAINFLUENZA VIRUS 1 NOT DETECTED; PARAINFLUENZA VIRUS 2 NOT DETECTED; PARAINFLUENZA VIRUS 3 NOT DETECTED; PARAINFLUENZA VIRUS 4 NOT DETECTED; RHINOVIRUS/ENTEROVIRUS NOT DETECTED; RSV- RESP PCR PANEL NOT DETECTED; SARS-CoV-2 -RESP PCR PANEL NOT DETECTED
--- NOTE | 2021-05-09 07:35 | ED Physician Documentation ---
PD HPI SEIZURE - Stated complaint Stated Complaint: SZ - Chief complaint Chief Complaint: Neuro - History obtained from History obtained from: Family, EMS - Additional information Additional information: SeizurePatient returns the emergency department via EMS for chief complaint of on the way home. Patient was just seen in the emergency department for a breakthrough seizure this evening. Please see my note from the patient's immediately prior visit for details on this. The patient had been treated with multiple sedating medications including 4 mg of Ativan, 25 mg of Phenergan, and a tablet of Vicodin in the emergency department. He had no seizure activity whatsoever and stated he felt well enough to go home. However, 10 minutes into the car ride home, medics and mom state that the patient stated he felt like he was going to have a seizure again and began to have typical grand mal seizure activity. The patient is still drowsy on arrival but verbal. Mom states she just does not know what else to do because the patient has a seizure every time he gets in the car to go home after an initial seizure, even if he has been without any seizures in the emergency department. She states he is a chronic insomniac and that this is not helping his seizures either. The patient sees Dr. Cancino for general neurology at [facility] and has seen Dr. Nnamdi Del Castillo once down to [facility] for more subspecialist seizure care. She is in the process of trying to get an inpatient seizure study set up for the patient. Review of Systems Unable to obtain: Uncooperative PD PAST MEDICAL HISTORY - Past Medical History Past Medical History: Yes Cardiovascular: None Respiratory: Asthma Neuro: Seizure disorder, Other Endocrine/Autoimmune: None GI: None : None HEENT: None Psych: Depression Musculoskeletal: None Derm: None - Past Surgical History Past Surgical History: No - Present Medications Home Medications: Ambulatory Orders Medication Instructions Recorded Confirmed lamoTRIgine [Lamictal] 250 mg PO BID 12/12/20 05/09/21 Amitriptyline [Elavil] 25 mg PO HS 04/01/21 05/09/21 LORazepam [Ativan] 1 mg PO Q6HR PRN #12 tablet 04/01/21 05/09/21 LORazepam [Lorazepam] 2 mg PO Q4HR PRN #20 tablet 05/09/21 05/09/21 - Allergies Allergies/Adverse Reactions: Allergies Allergy/AdvReac Type Severity Reaction Status Date / Time No Known Drug Allergies Allergy Verified 05/09/21 01:22 - Social History Does the pt smoke?: No Smoking Status: Never smoker Does the pt drink ETOH?: No Does the pt have substance abuse?: Yes - Immunizations Immunizations are current?: Yes - POLST Patient has POLST: No PD ED PE NORMAL - Vitals Vital signs reviewed: Yes - General General: No acute distress, Other (Patient is drowsy, slightly agitated, and somewhat confused.) - HEENT HEENT: Atraumatic, PERRL, EOMI, Moist mucous membranes - Neck Neck: Supple, no meningeal sign - Cardiac Cardiac: RRR, No murmur - Respiratory Respiratory: No respiratory distress, Clear bilaterally - Abdomen Abdomen: Soft, Non tender, Non distended - Derm Derm: Normal color, Warm and dry, No rash - Extremities Extremities: No deformity, No edema - Neuro Neuro: Other (No gross focal deficits. Patient is able to verbalize but is still somewhat confused and drowsy and is not able to cooperate fully with a neuro exam.) - Psych Psych: Normal mood, Normal affect Results - Vitals Vitals: Vital Signs - 24 hr 05/09/21 05/09/21 05/09/21 04:40 04:49 05:50 Temperature 36.7 C 36.8 C Heart Rate 115 H 104 H Respiratory 19 23 Rate Blood Pressure 153/86 H 142/65 H O2 Saturation 100 88 L 96 05/09/21 05/09/21 05:54 06:40 Temperature Heart Rate 100 106 H Respiratory 21 24 Rate Blood Pressure 142/65 H 166/110 H O2 Saturation 96 94 Oxygen O2 Source Nasal cannula Oxygen Flow Rate 2 - Labs Labs: Laboratory Tests 05/09/21 05/09/21 05/09/21 05:40 05:40 05:40 WBC 13.6 H RBC 5.28 Hgb 14.9 Hct 45.1 MCV 85.4 MCH 28.2 MCHC 33.0 RDW 13.2 Plt Count 267 MPV 9.4 Neut # (Auto) 11.8 H Lymph # (Auto) 0.9 L [place] # (Auto) 0.7 Eos # (Auto) 0.1 Baso # (Auto) 0.0 Absolute Nucleated RBC 0.00 Nucleated RBC % 0.0 Sodium 139 Potassium 4.4 Chloride 103 Carbon Dioxide 25 Anion Gap 11.0 BUN 16 Creatinine 1.3 H Estimated GFR (MDRD) 70 L Glucose 110 H Calcium 9.6 Total Bilirubin 0.7 AST 33 ALT 62 H Alkaline Phosphatase 88 Total Creatine Kinase 732 H Total Protein 7.6 Albumin 4.6 Globulin 3.0 Albumin/Globulin Ratio 1.5 Lipase 22 Nasal Adenovirus (PCR) NOT DETECTED Nasal B. parapertussis DNA (PCR) NOT DETECTED Nasal Coronavir 229E PCR NOT DETECTED Nasal Coronavir HKU1 PCR NOT DETECTED Nasal Coronavir NL63 PCR NOT DETECTED Nasal Coronavir OC43 PCR NOT DETECTED Nasal Enterovir/Rhinovir PCR NOT DETECTED Nasal Influenza B PCR NOT DETECTED Nasal Influenza A PCR NOT DETECTED Nasal Parainfluen 1 PCR NOT DETECTED Nasal Parainfluen 2 PCR NOT DETECTED Nasal Parainfluen 3 PCR NOT DETECTED Nasal Parainfluen 4 PCR NOT DETECTED Nasal RSV (PCR) NOT DETECTED Nasal B.pertussis DNA PCR NOT DETECTED Nasal C.pneumoniae (PCR) NOT DETECTED Kris Human Metapneumo PCR NOT DETECTED Nasal M.pneumoniae (PCR) NOT DETECTED Nasal SARS-CoV-2 (PCR) NOT DETECTED Ethyl Alcohol < 5.0 PD MEDICAL DECISION MAKING - ED course Complexity details: reviewed results, re-evaluated patient, considered differential, d/w patient, d/w family ED course: The patient continued to be quite sedated in the emergency department and I did not give him any further medication. He was given a liter bolus point and normal saline. I discussed with mom that we really do not have anything further to add for the patient's recurrent seizures at this point I cannot explain why he was fine here 4 hours but then 10 minutes into a car ride had a seizure. As such, I have reached out to [facility] where the patient's neur ology subspecialist is and although she was not available, I did speak with Dr. Benavides, one of Dr. Anderson who came in his colleagues. She recommended that the patient's Lamictal dose not be changed and that the mother reach out to Dr. Anderson who came in for further recommendations. Dr. Benavides did not feel the patient would benefit from admission at this point and stated that in any case there are no admission beds available at all through their system or others. I did speak with the patient's mother and relayed all of this to her. She states that she will come and get the patient. The patient was intermittently drowsy and belligerent in the emergency department and even after recovery from postictal state, continued to be oppositional and verbally abusive to staff. He is discharged in stable condition. We have discussed that if the patient has a breakthrough seizure, as long as the seizure comes to an end and the patient is coming around from his postictal phase, it is not necessary to come to the emergency department each time. However, we have discussed the usual indications for return. Departure - Departure Disposition: 01 Home, Self Care Clinical Impression: Grand mal seizure, Recurrent seizures Condition: Stable Instructions: ED Seizure Recurrent Comments: Your case was discussed with a colleague of Dr. Edward Del Castillo, yahir Quinteros at [facility]. She feels that you should stay on the same dose of lamotrigine and that you should call Dr. Edward Del Castillo's office directly to talk to her about what to do next. You have been treated with a large amount of lorazepam/Ativan here in the emergency department today, and at this point in time, it is likely most beneficial for you to be out of the emergency department and back in your family or home environment. You may have a breakthrough seizure in the car or at home, but at this point, there is nothing further from the neurologist perspective that can be done acutely. Please call or have your mother call Dr. Moran's office soon as possible to discuss a further plan for your seizures.
[2021-05-09 07:47] LABS: MUDS CUTOFF CONCENTRATIONS CUTOFF CONC BELOW:
[2021-05-09 08:05] LABS: AMPHETAMINE SCREEN,URINE NEGATIVE (NEGATIVE); BARBITURATE SCREEN,UR NEGATIVE (NEGATIVE); BENZODIAZEPINES SCREEN, URINE POSITIVE (NEGATIVE); COCAINE SCREEN URINE NEGATIVE (NEGATIVE); METHADONE SCREEN, URINE NEGATIVE (NEGATIVE); METHAMPHETAMINES SCREEN, URINE NEGATIVE (NEGATIVE); OPIATE SCREEN, URINE NEGATIVE (NEGATIVE); OXYCODONE SCREEN, URINE NEGATIVE (NEGATIVE); PROPOXYPHENE SCREEN, URINE NEGATIVE (NEGATIVE); THC CANNABINOID SCREEN, URINE POSITIVE (NEGATIVE); TRICYCLIC ANTIDEPRESSANT,URINE NEGATIVE (NEGATIVE)
== END 2021-05-09 08:14 | disposition home or self-care (01) ==
LOC: EDUNIT# → ED 04:40
DX: G40.401 Other generalized epilepsy and epileptic syndromes, not intractable, with status epilepticus (principal); Z20.822 Contact with and (suspected) exposure to COVID-19
CPT/HCPCS: 0202U; 36415; 80053; 80175; 80306; 80320; 82550; 83690; 85025; 96360; 96372; 99284; 99285; A9270; J2060; J8499

== ENCOUNTER 2021-11-24 21:45 | Outpatient (CLI) | payer MEDICAID | END 2021-11-24 21:46 | disposition critical access hospital (66) | LOC: EMS 21:45 | DX: R56.9 Unspecified convulsions (principal) | CPT/HCPCS: A0425; A0427; A0999 ==

== ENCOUNTER 2021-11-24 22:05 | Emergency (ER) | payer MEDICAID ==
[2021-11-24 22:40] LABS: BASOPHILS % (AUTO) 0.2 %; EOSINOPHILS # (AUTO) 0.2 10^3/uL (0.0-0.7); EOSINOPHILS % (AUTO) 1.9 %; HCT - HEMATOCRIT 42.7 % (42.0-52.0); HGB - HEMOGLOBIN 14.3 g/dL (14.0-18.0); LYMPHOCYTES % (AUTO) 9.2 %; MEAN CORPUSCULAR HEMOGLOBIN 28.6 pg (27.0-31.0); MEAN CORPUSCULAR HGB CONC 33.5 g/dL (32.0-36.0); MEAN CORPUSCULAR VOLUME 85.4 fL (80.0-94.0); MEAN PLATELET VOLUME 9.4 fL (7.4-11.4); MONOCYTES # (AUTO) 0.5 10^3/uL (0.0-1.0); MONOCYTES % (AUTO) 4.8 %; NEUTROPHILS # (AUTO) 9.3 10^3/uL (1.5-6.6); PLT - PLATELET COUNT 294 10^3/uL (130-450); WHITE BLOOD COUNT 11.2 x10^3/uL (4.8-10.8)
[2021-11-24 22:51] LABS: ALBUMIN 4.5 g/dL (3.2-5.5); ALBUMIN/GLOBULIN RATIO 1.5 (1.0-2.2); BILIRUBIN,TOTAL 0.8 mg/dL (0.2-1.0); CALCIUM 9.3 mg/dL (8.5-10.3); CREATININE 1.1 mg/dL (0.6-1.2); POTASSIUM 3.7 mmol/L (3.5-5.0); TOTAL PROTEIN 7.5 g/dL (6.7-8.2)
[2021-11-24] MEDS ORDERED: lamoTRIgine 100 MG TABLET PO STA (23:42)
--- NOTE | 2021-11-24 23:43 | ED Physician Documentation ---
History of Present Illness - Stated complaint Stated Complaint: SEIZURE - Chief complaint Chief Complaint: Neuro - History obtained from History obtained from: Patient - Additonal information Additional information: 21yM with pmh chronic insomnia, epilepsy with poorly controlled seizures on lamictal 250 bid (neuro at [facility] Dr. Cancino, neuro at Dr. Edward Del Castillo), p/w GTC seizure lasting about 5 min today preceded by another smaller seizure per his report with return to baseline in between. patient has been under increased stress recently, also hasn't been sleeping the past few nights and had an argument with his brother that he believes acted as a trigger. compliant with meds but he states he threw up his evening dose of lamictal. denies fever/chills, saravia, fnd. aox4 Review of Systems Ten Systems: 10 systems reviewed and negative Constitutional: denies: Fever, Chills PD PAST MEDICAL HISTORY - Past Medical History Cardiovascular: None Respiratory: Asthma Neuro: Seizure disorder, Other Endocrine/Autoimmune: None GI: None : None HEENT: None Psych: Depression Musculoskeletal: None Derm: None - Past Surgical History Past Surgical History: No - Present Medications Home Medications: Ambulatory Orders Medication Instructions Recorded Confirmed lamoTRIgine [Lamictal] 250 mg PO BID 12/12/20 05/09/21 Amitriptyline [Elavil] 25 mg PO HS 04/01/21 05/09/21 Lacosamide [Vimpat] 100 mg PO BID #60 tablet 11/25/21 - Allergies Allergies/Adverse Reactions: Allergies Allergy/AdvReac Type Severity Reaction Status Date / Time No Known Drug Allergies Allergy Verified 05/09/21 01:22 - Social History Does the pt smoke?: No Smoking Status: Never smoker Does the pt drink ETOH?: No Does the pt have substance abuse?: Yes - Immunizations Immunizations are current?: Yes - POLST Patient has POLST: No PD ED PE NORMAL - Vitals Vital signs reviewed: Yes - General General: Alert and oriented X 3, No acute distress, Well developed/nourished - HEENT HEENT: Atraumatic, PERRL, EOMI - Neck Neck: Supple, no meningeal sign - Cardiac Cardiac: RRR - Respiratory Respiratory: No respiratory distress, Clear bilaterally - Abdomen Abdomen: Non tender, Non distended - Male Male : Deferred - Rectal Rectal: Deferred - Back Back: No CVA TTP - Derm Derm: Normal color, Warm and dry - Extremities Extremities: No deformity, No edema - Neuro Neuro: Alert and oriented X 3, dictaphone operator 2-12 intact, No motor deficit, No sensory deficit, Normal speech Eye Opening: Spontaneous Motor: Obeys Commands Verbal: Oriented GCS Score: 15 - Psych Psych: Normal mood, Normal affect Results - Vitals Vitals: Vital Signs - 24 hr 11/24/21 11/24/21 22:12 22:30 Temperature 37 C Heart Rate 115 H 93 Respiratory 22 12 Rate Blood Pressure 140/65 H 142/42 H O2 Saturation 98 98 Oxygen O2 Source Nasal cannula - Labs Labs: Laboratory Tests 11/24/21 11/24/21 22:33 22:33 WBC 11.2 H RBC 5.00 Hgb 14.3 Hct 42.7 MCV 85.4 MCH 28.6 MCHC 33.5 RDW 14.0 Plt Count 294 MPV 9.4 Neut # (Auto) 9.3 H Lymph # (Auto) 1.0 L [place] # (Auto) 0.5 Eos # (Auto) 0.2 Baso # (Auto) 0.0 Absolute Nucleated RBC 0.00 Nucleated RBC % 0.0 Sodium 137 Potassium 3.7 Chloride 101 Carbon Dioxide 21 Anion Gap 15.0 H BUN 13 Creatinine 1.1 Estimated GFR (MDRD) 85 L Glucose 131 H Calcium 9.3 Total Bilirubin 0.8 AST 28 ALT 38 Alkaline Phosphatase 70 Total Protein 7.5 Albumin 4.5 Globulin 3.0 Albumin/Globulin Ratio 1.5 Lipase 29 PD MEDICAL DECISION MAKING - ED course ED course: 21yM with pmh epilepsy p/w two GTC seizures today. returned to baseline with no FND at present. Dr. Amin, neurologist [place] at [facility]. patient is already on max dose of lamictal (250 bid). glucosamide has minimal side effect profile and can act as good adjunct. recommends lacosamide 100bid and outpatient follow up with patient's neurologist Dr. Cancino at [facility] and with Dr. Edward Haas with . strict return precautions given. Departure - Departure Disposition: 01 Home, Self Care Clinical Impression: Epilepsy Condition: Good Instructions: Epilepsy Dx Prescriptions: Lacosamide [Vimpat] 100 mg PO BID #60 tablet Comments: You were seen in the ED for seizure related to your epilepsy. I spoke with Dr. Amin, a neurologist at [facility] who recommended we start lacosamide 100mg twice daily in addition to your lamictal. A lamictal level was sent and will result in the next 24 to 48 hours. You can view the result on your patient health portal. you should follow up with your neurologist Dr. Cancino as soon as possible and return to the ED if you have new or worsening symptoms or other concerns.
[2021-11-25] MEDS ORDERED: LORazepam 1 MG TABLET PO STA (00:22)
[2021-11-25 00:45] VITALS: BP 130/62
== END 2021-11-25 01:09 | disposition home or self-care (01) ==
LOC: EDUNIT# → ED 22:05
DX: G40.909 Epilepsy, unspecified, not intractable, without status epilepticus (principal)
CPT/HCPCS: 36415; 80053; 80175; 83690; 85025; 99283; 99284; A9270; J8499

== ENCOUNTER 2022-04-09 17:14 | Outpatient (CLI) | payer MEDICAID | END 2022-04-09 17:15 | disposition critical access hospital (66) | LOC: EMS 17:14 | DX: R56.9 Unspecified convulsions (principal) | CPT/HCPCS: A0425; A0427; A0999 ==

== ENCOUNTER 2022-04-09 17:41 | Emergency (ER) | payer MEDICAID ==
--- NOTE | 2022-04-09 17:53 | ED Physician Documentation ---
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 NO recent illness.). No: Headache, Chest pain, Dyspnea History of seizures: Known seizure disorder Contributing factors: Changed meds (had missed couple of doses in the past week, including late dose this morning that he took just shortly prior to the seizure.). No: Off meds, Out of meds Review of Systems Constitutional: denies: Fever, Chills, Myalgias Nose: denies: Rhinorrhea / runny nose, Congestion Throat: denies: Sore throat Respiratory: denies: Cough Musculoskeletal: denies: Neck pain, Back pain, Extremity pain Neurologic: reports: Generalized weakness. denies: Focal weakness, Headache, Head injury PD PAST MEDICAL HISTORY - Past Medical History Cardiovascular: None Respiratory: Asthma Neuro: Seizure disorder, Other Endocrine/Autoimmune: None GI: None : None HEENT: None Psych: Depression Musculoskeletal: None Derm: None - Past Surgical History Past Surgical History: No - Present Medications Home Medications: Ambulatory Orders Medication Instructions Recorded Confirmed lamoTRIgine [Lamictal] 250 mg PO BID 12/12/20 05/09/21 Amitriptyline [Elavil] 25 mg PO HS 04/01/21 05/09/21 Lacosamide [Vimpat] 100 mg PO BID #60 tablet 11/25/21 - Allergies Allergies/Adverse Reactions: Allergies Allergy/AdvReac Type Severity Reaction Status Date / Time No Known Drug Allergies Allergy Verified 05/09/21 01:22 - Social History Does the pt smoke?: No Smoking Status: Never smoker Does the pt drink ETOH?: No Does the pt have substance abuse?: Yes - Immunizations Immunizations are current?: Yes - POLST Patient has POLST: No PD ED PE NORMAL - Vitals Vital signs reviewed: Yes - General General: Alert and oriented X 3, No acute distress, Well developed/nourished, Other (he is appearing anxious. Able to answer questions. ) - HEENT HEENT: Atraumatic, Pharynx benign, Dentition benign, Other (no tongue injury.) - Neck Neck: Supple, no meningeal sign, No adenopathy - Cardiac Cardiac: No murmur. No: RRR (tachycardic but regular. ) - Abdomen Abdomen: Normal bowel sounds, Soft, Non tender, Non distended - Neuro Neuro: Alert and oriented X 3, No motor deficit, No sensory deficit, Normal speech Eye Opening: Spontaneous Motor: Obeys Commands Verbal: Oriented GCS Score: 15 - Psych Psych: No: Normal affect (anxious and restless on cart, but talking doherently and moving all extremities. ) Results - Vitals Vitals: Vital Signs - 24 hr 04/09/22 04/09/22 04/09/22 17:49 17:57 18:27 Temperature 37 C 37 C Heart Rate 117 H 117 H 91 Respiratory 25 H 25 H 16 Rate Blood Pressure 117/84 H 117/84 H 115/65 O2 Saturation 100 100 100 04/09/22 04/09/22 18:30 19:57 Temperature Heart Rate 89 89 Respiratory 12 12 Rate Blood Pressure 114/58 L 114/58 L O2 Saturation 99 99 Oxygen O2 Source Room air - Labs Labs: Laboratory Tests 04/09/22 04/09/22 18:12 18:12 WBC 8.2 RBC 5.32 Hgb 15.2 Hct 45.4 MCV 85.3 MCH 28.6 MCHC 33.5 RDW 13.2 Plt Count 288 MPV 9.1 Neut # (Auto) 5.5 Lymph # (Auto) 1.7 [place] # (Auto) 0.5 Eos # (Auto) 0.4 Baso # (Auto) 0.0 Absolute Nucleated RBC 0.00 Nucleated RBC % 0.0 Sodium 138 Potassium 3.4 L Chloride 102 Carbon Dioxide 21 Anion Gap 15.0 H BUN 14 Creatinine 1.2 Estimated GFR (MDRD) 76 L Glucose 124 H Calcium 9.9 Magnesium 1.9 Total Bilirubin 0.5 AST 28 ALT 57 Alkaline Phosphatase 73 Total Protein 7.9 Albumin 4.7 Globulin 3.2 Albumin/Globulin Ratio 1.5 Lipase 23 PD MEDICAL DECISION MAKING - ED course Complexity details: reviewed old records, re-evaluated patient (his motheer says he does get anxious after a seizure, as part of the post-ictal symptoms. Ativan usually works well to calm him just at that time. ), d/w patient, d/w family (his mother arrived to ER and was with him until discharge. ) Departure - Departure Disposition: 01 Home, Self Care Clinical Impression: Seizures, generalized convulsive, History of seizure Condition: Stable Record reviewed to determine appropriate education?: Yes Instructions: ED Seizure Recurrent Comments: Stay well-hydrated and continue usual medications. Tylenol or ibuprofen if needed for headaches or pains. Return if further symptoms or recurrent seizures etc. Discharge Date/Time: 04/09/22 20:01
[2022-04-09] MEDS ORDERED: diphenhydrAMINE INJ 50 MG/ML VIAL IVP STA (17:58)
[2022-04-09] MEDS ORDERED: SODIUM CHLORIDE 0.9% 1,000 ML IV STA (17:58)
[2022-04-09] MEDS ORDERED: PROCHLORPERAZINE 10 MG/2 ML VIAL IVP STA (17:58)
[2022-04-09] MEDS ORDERED: KETOROLAC 15 MG/ML VIAL IVP STA (17:58)
[2022-04-09] MEDS ORDERED: ONDANSETRON 4 MG/2 ML VIAL IVP STA (18:07)
[2022-04-09 18:25] LABS: BASOPHILS % (AUTO) 0.5 %; EOSINOPHILS # (AUTO) 0.4 10^3/uL (0.0-0.7); EOSINOPHILS % (AUTO) 5.4 %; HCT - HEMATOCRIT 45.4 % (42.0-52.0); HGB - HEMOGLOBIN 15.2 g/dL (14.0-18.0); LYMPHOCYTES # (AUTO) 1.7 10^3/uL (1.5-3.5); LYMPHOCYTES % (AUTO) 20.9 %; MEAN CORPUSCULAR HEMOGLOBIN 28.6 pg (27.0-31.0); MEAN CORPUSCULAR HGB CONC 33.5 g/dL (32.0-36.0); MEAN CORPUSCULAR VOLUME 85.3 fL (80.0-94.0); MEAN PLATELET VOLUME 9.1 fL (7.4-11.4); MONOCYTES # (AUTO) 0.5 10^3/uL (0.0-1.0); MONOCYTES % (AUTO) 5.8 %; NEUTROPHILS # (AUTO) 5.5 10^3/uL (1.5-6.6); PLT - PLATELET COUNT 288 10^3/uL (130-450); RED BLOOD COUNT 5.32 10^6/uL (4.70-6.10); RED CELL DISTRIBUTION WIDTH 13.2 % (12.0-15.0); WHITE BLOOD COUNT 8.2 x10^3/uL (4.8-10.8)
[2022-04-09] MEDS ORDERED: LORazepam 2 MG/ML VIAL IVP STA (18:32)
[2022-04-09 18:48] LABS: BILIRUBIN,TOTAL 0.5 mg/dL (0.2-1.0); CALCIUM 9.9 mg/dL (8.5-10.3); MAGNESIUM 1.9 mg/dL (1.7-2.8); POTASSIUM 3.4 mmol/L (3.5-5.0); TOTAL PROTEIN 7.9 g/dL (6.7-8.2)
[2022-04-09 19:01] LABS: ALBUMIN 4.7 g/dL (3.2-5.5); ALBUMIN/GLOBULIN RATIO 1.5 (1.0-2.2); CREATININE 1.2 mg/dL (0.6-1.2)
[2022-04-09] MEDS ORDERED: ACETAMINOPHEN 325 MG TABLET PO STA (19:07)
[2022-04-09 19:57] VITALS: BP 114/58
== END 2022-04-09 20:01 | disposition home or self-care (01) ==
LOC: EDUNIT# → ED 17:41
DX: G40.409 Other generalized epilepsy and epileptic syndromes, not intractable, without status epilepticus (principal)
CPT/HCPCS: 36415; 80053; 83690; 83735; 85025; 96374; 96375; 99284; A9270; J2060

== ENCOUNTER 2023-04-22 14:45 | Outpatient (CLI) | payer MEDICAID ==
[2023-04-22 20:25] LABS: CHLAMYDIA TRACHOMATIS DNA NEGATIVE (NEGATIVE); NEISSERIA GONORRHOEAE DNA NEGATIVE (NEGATIVE); TRICHOMONAS VAGINALIS DNA NEGATIVE (NEGATIVE)
== END 2023-04-22 15:00 | disposition home or self-care (01) ==
LOC: LAB.N 14:45
PROVIDERS: ATTEND Registered Nurse
DX: Z20.2 Contact with and (suspected) exposure to infections with a predominantly sexual mode of transmission (principal)
CPT/HCPCS: 87491; 87591; 87661